=== PATIENT | female | born 1985 | race Caucasian/White ===

== ENCOUNTER 2020-03-14 08:19 | Observation (INO) ==
[2020-03-14] MEDS ORDERED: Naloxone 0.4 MG/ML INJ IVP PRN ×2 (12:14→19:20)
[2020-03-14] MEDS ORDERED: *HR* HYDROcodone/Acet 5/325 mg TABLET PO PRN ×2 (12:14→19:20)
[2020-03-14] MEDS ORDERED: *HR* OxyCODONE Immed Rel 5 MG TABLET PO PRN ×3 (12:14→19:20)
[2020-03-14] MEDS ORDERED: Ondansetron 4 MG/2 ML VIAL IVP PRN ×2 (12:14→19:20)
[2020-03-14] MEDS ORDERED: levoFLOXacin 500 MG/100 ML 500 MG/100 ML BAG IVPB SCH (13:00)
[2020-03-14 14:41] LABS: Basophils # 0.1 K/mcL (0.0-0.2); Basophils % 0.9 %; Eosinophils # 0.2 K/mcL (0.0-0.6); Hematocrit 46.9 % (35.3-44.9); Immature Granulocytes % 0.2 % (0-4); Lymphocytes # 2.3 K/mcL (0.6-4.6); Lymphocytes % 39.7 %; Mean Corpuscular Hemoglobin 28.5 pg (28.0-33.3); Mean Platelet Volume 11.4 fL (9.4-12.4); Monocytes # 0.5 K/mcL (0.0-1.3); Monocytes % 8.8 %; Neutrophils # 2.7 K/mcL (1.6-8.9); Platelet Count 270 K/mcL (140-400); Red Blood Count 5.27 M/mcL (3.82-4.97); Red Cell Distribution Width 13.2 % (11.5-14.5); Segmented Neutrophils % 46.4 %; White Blood Count 5.8 K/mcL (4.3-11.1)
[2020-03-14 14:44] LABS: BUN/Creatinine Ratio 20 (6-26); Blood Urea Nitrogen 11 mg/dL (6-20); Calcium 10.2 mg/dL (8.6-10.3); Carbon Dioxide 23 mEq/L (23-29); Chloride 101 mEq/L (98-107); Glucose 80 mg/dL (70-105); Osmolality,Calculated 288 (280-300); Potassium 2.7 mEq/L (3.5-5.1); Sodium 140 mEq/L (136-145); eGFR For African Americans > 60 (> 60); eGFR For Non-African Americans > 60 (> 60)
[2020-03-14] MEDS ORDERED: *HR* Midazolam HCl 2 MG/2 ML VIAL ONE (16:14)
[2020-03-14] MEDS ORDERED: Lidocaine -MPF 2% 2 ML VIAL ONE (16:14)
[2020-03-14] MEDS ORDERED: *HR* FentaNYL (PF) 100 MCG/2 ML VIAL ONE (16:15)
[2020-03-14] MEDS ORDERED: *HR* Propofol 200 MG/20 ML VIAL IVP ONE (16:15)
[2020-03-14] MEDS ORDERED: Acetaminophen IV 1,000 MG/100 ML BAG IVPB ONE (16:54)
[2020-03-14] MEDS ORDERED: *HR* HYDROmorphone PF 0.5 MG/0.5 ML SYRINGE IVP PRN (16:54)
[2020-03-14] MEDS ORDERED: *HR* HYDROmorphone 2 MG TABLET PO PRN (16:54)
[2020-03-14] MEDS ORDERED: *HR* Labetalol 20 MG/4 ML SYRINGE IVP PRN (16:54)
[2020-03-14] MEDS ORDERED: Famotidine 20 MG/2 ML VIAL IVP ONE (16:54)
[2020-03-14] MEDS ORDERED: Ondansetron 4 MG/2 ML VIAL ONE (17:24)
[2020-03-14] MEDS ORDERED: Dexamethasone 4 MG/ML VIAL ONE (17:24)
[2020-03-14] MEDS: 0.9 % Sodium Chloride 1,000 ML IVC SCH (20:00)
[2020-03-15] MEDS: 0.9 % Sodium Chloride 1,000 ML IVC SCH ×2 (05:22→07:22)
[2020-03-15 06:55] VITALS: BP 112/67
[2020-03-15] MEDS ORDERED: levoFLOXacin 500 MG/100 ML 500 MG/100 ML BAG IVPB SCH (13:00)
== END 2020-03-15 13:29 | disposition home or self-care (01) ==
LOC: 3ANU
PROVIDERS: ADMIT Urology; ATTEND Urology